=== PATIENT | female | born 1990 | race Caucasian/White ===

== ENCOUNTER 2021-10-20 09:07 | Emergency (ER) | payer OTHER | END 2021-10-20 12:10 | disposition home or self-care (01) | LOC: EC 09:07 | DX: T78.40XA Allergy, unspecified, initial encounter (principal) | CPT/HCPCS: 99282 ==

== ENCOUNTER 2021-12-09 15:20 | Inpatient (IN) | payer OTHER ==
[2021-12-09 17:19] LABS: Basophils % (A) 0 %; Eosinophils % (A) 0 %; HCT 41.1 % (34.0-46.0); HGB 13.4 gm/dL (11.4-16.0); Lymphocytes # (A) 0.9 k/uL (1.0-4.8); Lymphocytes % (A) 9 %; MCH 28.9 pg (25.0-35.0); MCHC 32.7 g/dL (31.0-37.0); MCV 88.6 fL (80.0-100.0); Mean Platelet Volume 7.1; Monocytes # (A) 0.2 k/uL (0-1.0); Monocytes % (A) 2 %; Neutrophils # (A) 8.9 k/uL (1.3-7.7); Neutrophils % (A) 88 %; Platelet Count 381 k/uL (150-450); RBC 4.63 m/uL (3.80-5.40); RDW 12.2 % (11.5-15.5); WBC 10.1 k/uL (3.8-10.6)
[2021-12-09 17:30] LABS: Appearance,Urine Cloudy (Clear); Bacteria,Urine Occasional /hpf; Bilirubin,Urine Negative (Negative); Blood,Urine Large (Negative); Color,Urine Yellow; Glucose,Urine (UA) Negative (Negative); Ketones,Urine Negative (Negative); Leukocyte Esterase,Urine Large (Negative); Mucus,Urine Few /hpf; Nitrite,Urine Negative (Negative); PH, Urine 8.5 (5.0-8.0); Protein,Urine 1+ (Negative); RBC,Urine 131 /hpf (0-5); Squamous Epithelial Cell,Urine 15 /hpf (0-4); WBC,Urine 33 /hpf (0-5)
[2021-12-09 17:30] LABS: ALT 28 U/L (4-34); AST 28 U/L (14-36); African American GFR (CKD) >90 (>60 ml/min/1.73 sqM); Albumin 4.8 g/dL (3.5-5.0); Alkaline Phosphatase 51 U/L (38-126); Amylase 63 U/L (30-110); Anion Gap 10 mmol/L; Blood Urea Nitrogen 10 mg/dL (7-17); Calcium 9.3 mg/dL (8.4-10.2); Carbon Dioxide 21 mmol/L (22-30); Chloride 107 mmol/L (98-107); Glucose 127 mg/dL (74-99); Lipase 212 U/L (23-300); Non-African American GFR(CKD) >90 (>60 ml/min/1.73 sqM); Potassium 4.4 mmol/L (3.5-5.1); Sodium 138 mmol/L (137-145); Total Bilirubin 0.5 mg/dL (0.2-1.3); Total Protein 7.8 g/dL (6.3-8.2)
--- NOTE | 2021-12-09 18:19 | XR ---
EXAMINATION TYPE: XR KUB DATE OF EXAM: 12/09/2021 6:05 PM INDICATION: Patient age:Female; 31 years old; Reason for study: abdominal pain; COMPARISON: None. TECHNIQUE: One radiographic view of the abdomen was obtained. FINDINGS: The bowel gas pattern is nonspecific without dilated loops of small or large bowel. There i s no evidence for organomegaly or pneumoperitoneum. The osseous structures are intact. Fecal materi al and gas are demonstrated throughout the colon and rectum. IUD projects over the sacrum. IMPRESSION: 1. Nonspecific bowel gas pattern without radiographic evidence for acute process. 2. IUD projecting over the sacrum.
--- NOTE | 2021-12-09 20:53 | ED ---
Abdominal Pain HPI - General Chief Complaint: Abdominal Pain Stated Complaint: Abd pain Time Seen by Provider: 12/09/21 16:10 Source: patient Mode of arrival: ambulatory Limitations: no limitations - History of Present Illness Initial Comments: 31-year-old female with past medical history of asthma presents to the emergency department for shortness of breath and lower extremity swelling. Patient reports that she has been on steroids for several months due to a chronic cough. The steroids have been prescribed by an director software development that she is seeing. 2 days ago she was placed on 50 mg predinsone daily to be tapered over several weeks. Since the increase in the steroids she has had worsening lower extremity swelling, continued shortness of breath and abdominal distention. She denies any changes in her bowel or bladder habits. No chest pain. No history of DVT or PE. No fevers. Reports that they're trying to get her cough under control so that they can biopsy her thyroid. Patient was found to have a large thyroid nodule. No concern for . No alcohol use. No other alleviating, precipitating or modifying factors - Related Data Home Medications Medication Instructions Recorded Confirmed Albuterol Nebulized [Ventolin 2.5 mg INHALATION RT-Q6H PRN 12/09/21 12/09/21 Nebulized] Albuterol Sulfate [Ventolin HFA] 2 puff INHALATION RT-Q6H PRN 12/09/21 12/09/21 Azelastine HCl [Astepro] 1 spray NASAL DAILY 12/09/21 12/09/21 Cetirizine HCl 10 mg PO DAILY 12/09/21 12/09/21 Codeine Phosphate/Guaifenesin 10 ml PO Q4H PRN 12/09/21 12/09/21 [Codeine Phosphate/Guaifenesin 10-100 mg/5 ml] Fluticasone Nasal [place] [Flonase 1 spray EA NOSTRIL DAILY 12/09/21 12/09/21 Nasal Blanco] Fluticasone/Umeclidin/Vilanter 1 puff INHALATION RT-DAILY 12/09/21 12/09/21 [Trelegy Ellipta 100-62.5-25] Hydroxychloroquine Sulfate 200 mg PO BID 12/09/21 12/09/21 [Plaquenil] Montelukast [Singulair] 10 mg PO DAILY 12/09/21 12/09/21 predniSONE See Taper PO DIRECTED 12/09/21 12/09/21 Allergies Allergy/AdvReac Type Severity Reaction Status Date / Time No Known Allergies Allergy Verified 12/09/21 16:12 Review of Systems ROS Statement: Those systems with pertinent positive or pertinent negative responses have been documented in the HPI. ROS Other: All systems not noted in ROS Statement are negative. Past Medical History Additional Past Medical History / Comment(s): mass on thyroid History of Any Multi-Drug Resistant Organisms: None Reported Past Surgical History: No Surgical Hx Reported Past Psychological History: No Psychological Hx Reported Smoking Status: Never smoker Past Alcohol Use History: Rare Past Drug Use History: None Reported General Exam Limitations: no limitations General appearance: alert, in no apparent distress Head exam: Present: atraumatic, normocephalic, normal inspection Eye exam: Present: normal appearance, PERRL, EOMI. Absent: scleral icterus, conjunctival injection, periorbital swelling ENT exam: Present: normal exam, mucous membranes moist Neck exam: Present: normal inspection. Absent: tenderness, meningismus, lymphadenopathy Respiratory exam: Present: normal lung sounds bilaterally. Absent: respiratory distress, wheezes, rales, rhonchi, stridor Cardiovascular Exam: Present: regular rate, normal rhythm, normal heart sounds. Absent: systolic murmur, diastolic murmur, rubs, gallop, clicks GI/Abdominal exam: Present: soft, distended, normal bowel sounds. Absent: tenderness, guarding, rebound, rigid Extremities exam: Present: full ROM, normal capillary refill, pedal edema. Absent: tenderness, joint swelling, calf tenderness Back exam: Present: normal inspection Neurological exam: Present: alert, oriented X3, CN II-XII intact Psychiatric exam: Present: normal affect, normal mood Skin exam: Present: warm, dry, intact, normal color. Absent: rash Course Vital Signs 12/09/21 12/09/21 12/09/21 16:08 20:00 21:00 Temperature 98.2 F 98.7 F Pulse Rate 95 92 Respiratory 16 18 20 Rate Blood Pressure 125/82 118/86 O2 Sat by Pulse 98 97 Oximetry Medical Decision Making - Medical Decision Making Upon arrival the patient was placed into room 6. A thorough history and physical exam was performed. IV access is established and laboratory studies are conducted. KUB was originally obtained which demonstrates nonspecific bowel gas pattern. This is followed up with a CT of the chest to the patient's persistent shortness of breath with leg swelling which demonstrates no signs of PE. CT of the abdomen and pelvis was obtained because of the abdominal distention with no acute process. Did call and speak with Dr. Metcalf in regards to resolve. Patient will be admitted for echo. She is awaiting a bed on the floor in stable condition - Lab Data Result diagrams: 12/10/21 06:13 12/10/21 06:13 Lab Results 12/09/21 12/09/21 12/09/21 Range/Units 17:08 17:08 17:10 WBC 10.1 (3.8-10.6) k/uL RBC 4.63 (3.80-5.40) m/uL Hgb 13.4 (11.4-16.0) gm/dL Hct 41.1 (34.0-46.0) % MCV 88.6 (80.0-100.0) fL MCH 28.9 (25.0-35.0) pg MCHC 32.7 (31.0-37.0) g/dL RDW 12.2 (11.5-15.5) % Plt Count 381 (150-450) k/uL MPV 7.1 Neutrophils % 88 % Lymphocytes % 9 % Monocytes % 2 % Eosinophils % 0 % Basophils % 0 % Neutrophils # 8.9 H (1.3-7.7) k/uL Lymphocytes # 0.9 L (1.0-4.8) k/uL Monocytes # 0.2 (0-1.0) k/uL Eosinophils # 0.0 (0-0.7) k/uL Basophils # 0.0 (0-0.2) k/uL PT (9.0-12.0) sec INR (<1.2) APTT (22.0-30.0) sec Sodium (137-145) mmol/L Potassium (3.5-5.1) mmol/L Chloride (98-107) mmol/L Carbon Dioxide (22-30) mmol/L Anion Gap mmol/L BUN (7-17) mg/dL Creatinine (0.52-1.04) mg/dL Est GFR (CKD-EPI)AfAm (>60 ml/min/1.73 sqM) Est GFR (CKD-EPI)NonAf (>60 ml/min/1.73 sqM) Glucose (74-99) mg/dL Calcium (8.4-10.2) mg/dL Total Bilirubin (0.2-1.3) mg/dL AST (14-36) U/L ALT (4-34) U/L Alkaline Phosphatase (38-126) U/L Troponin I (0.000-0.034) ng/mL NT-Pro-B Natriuret Pep pg/mL Total Protein (6.3-8.2) g/dL Albumin (3.5-5.0) g/dL Amylase (30-110) U/L Lipase (23-300) U/L Urine Color Yellow Urine Appearance Cloudy H (Clear) Urine pH 8.5 H (5.0-8.0) Ur Specific [place] 1.020 (1.001-1.035) Urine Protein 1+ H (Negative) Urine Glucose (UA) Negative (Negative) Urine Ketones Negative (Negative) Urine Blood Large H (Negative) Urine Nitrite Negative (Negative) Urine Bilirubin Negative (Negative) Urine Urobilinogen 2.0 (<2.0) mg/dL Ur Leukocyte Esterase Large H (Negative) Urine RBC 131 H (0-5) /hpf Urine WBC 33 H (0-5) /hpf Ur Squamous Epith Cells 15 H (0-4) /hpf Urine Bacteria Occasional H (None) /hpf Urine Mucus Few H (None) /hpf Urine HCG, Qual Not Detected (Not Detectd) 12/09/21 12/09/21 12/09/21 Range/Units 17:10 21:07 21:07 WBC (3.8-10.6) k/uL RBC (3.80-5.40) m/uL Hgb (11.4-16.0) gm/dL Hct (34.0-46.0) % MCV (80.0-100.0) fL MCH (25.0-35.0) pg MCHC (31.0-37.0) g/dL RDW (11.5-15.5) % Plt Count (150-450) k/uL MPV Neutrophils % % Lymphocytes % % Monocytes % % Eosinophils % % Basophils % % Neutrophils # (1.3-7.7) k/uL Lymphocytes # (1.0-4.8) k/uL Monocytes # (0-1.0) k/uL Eosinophils # (0-0.7) k/uL Basophils # (0-0.2) k/uL PT 11.0 (9.0-12.0) sec INR 1.0 (<1.2) APTT 25.9 (22.0-30.0) sec Sodium 138 (137-145) mmol/L Potassium 4.4 (3.5-5.1) mmol/L Chloride 107 (98-107) mmol/L Carbon Dioxide 21 L (22-30) mmol/L Anion Gap 10 mmol/L BUN 10 (7-17) mg/dL Creatinine 0.73 (0.52-1.04) mg/dL Est GFR (CKD-EPI)AfAm >90 (>60 ml/min/1.73 sqM) Est GFR (CKD-EPI)NonAf >90 (>60 ml/min/1.73 sqM) Glucose 127 H (74-99) mg/dL Calcium 9.3 (8.4-10.2) mg/dL Total Bilirubin 0.5 (0.2-1.3) mg/dL AST 28 (14-36) U/L ALT 28 (4-34) U/L Alkaline Phosphatase 51 (38-126) U/L Troponin I <0.012 (0.000-0.034) ng/mL NT-Pro-B Natriuret Pep pg/mL Total Protein 7.8 (6.3-8.2) g/dL Albumin 4.8 (3.5-5.0) g/dL Amylase 63 (30-110) U/L Lipase 212 (23-300) U/L Urine Color Urine Appearance (Clear) Urine pH (5.0-8.0) Ur Specific [place] (1.001-1.035) Urine Protein (Negative) Urine Glucose (UA) (Negative) Urine Ketones (Negative) Urine Blood (Negative) Urine Nitrite (Negative) Urine Bilirubin (Negative) Urine Urobilinogen (<2.0) mg/dL Ur Leukocyte Esterase (Negative) Urine RBC (0-5) /hpf Urine WBC (0-5) /hpf Ur Squamous Epith Cells (0-4) /hpf Urine Bacteria (None) /hpf Urine Mucus (None) /hpf Urine HCG, Qual (Not Detectd) 12/09/21 Range/Units 21:07 WBC (3.8-10.6) k/uL RBC (3.80-5.40) m/uL Hgb (11.4-16.0) gm/dL Hct (34.0-46.0) % MCV (80.0-100.0) fL MCH (25.0-35.0) pg MCHC (31.0-37.0) g/dL RDW (11.5-15.5) % Plt Count (150-450) k/uL MPV Neutrophils % % Lymphocytes % % Monocytes % % Eosinophils % % Basophils % % Neutrophils # (1.3-7.7) k/uL Lymphocytes # (1.0-4.8) k/uL Monocytes # (0-1.0) k/uL Eosinophils # (0-0.7) k/uL Basophils # (0-0.2) k/uL PT (9.0-12.0) sec INR (<1.2) APTT (22.0-30.0) sec Sodium (137-145) mmol/L Potassium (3.5-5.1) mmol/L Chloride (98-107) mmol/L Carbon Dioxide (22-30) mmol/L Anion Gap mmol/L BUN (7-17) mg/dL Creatinine (0.52-1.04) mg/dL Est GFR (CKD-EPI)AfAm (>60 ml/min/1.73 sqM) Est GFR (CKD-EPI)NonAf (>60 ml/min/1.73 sqM) Glucose (74-99) mg/dL Calcium (8.4-10.2) mg/dL Total Bilirubin (0.2-1.3) mg/dL AST (14-36) U/L ALT (4-34) U/L Alkaline Phosphatase (38-126) U/L Troponin I (0.000-0.034) ng/mL NT-Pro-B Natriuret Pep 85 pg/mL Total Protein (6.3-8.2) g/dL Albumin (3.5-5.0) g/dL Amylase (30-110) U/L Lipase (23-300) U/L Urine Color Urine Appearance (Clear) Urine pH (5.0-8.0) Ur Specific [place] (1.001-1.035) Urine Protein (Negative) Urine Glucose (UA) (Negative) Urine Ketones (Negative) Urine Blood (Negative) Urine Nitrite (Negative) Urine Bilirubin (Negative) Urine Urobilinogen (<2.0) mg/dL Ur Leukocyte Esterase (Negative) Urine RBC (0-5) /hpf Urine WBC (0-5) /hpf Ur Squamous Epith Cells (0-4) /hpf Urine Bacteria (None) /hpf Urine Mucus (None) /hpf Urine HCG, Qual (Not Detectd) Disposition Clinical Impression: Peripheral edema, Abdominal pain, Chronic cough Disposition: ADMITTED IP TO THIS [facility] Condition: Stable Is patient prescribed a controlled substance at d/c from ED?: No Time of Disposition: 22:53 Decision to Admit Reason: Admit from EC Decision Date: 12/09/21 Decision Time: 22:53
[2021-12-09] MEDS ORDERED: MORPHINE SULFATE 4 MG/ML SYRINGE IVP STA (21:16)
[2021-12-09 21:35] LABS: Partial Thromboplastin Time 25.9 sec (22.0-30.0)
--- NOTE | 2021-12-09 21:52 | CT ---
EXAMINATION TYPE: CT chest angio for PE CT DLP: 1270.9 mGycm, Automated exposure control for dose reduction was used. DATE OF EXAM: 12/09/2021 9:34 PM COMPARISON: Abdominal radiograph from same day. CLINICAL INDICATION:Female, 31 years old with history of chest pain, short of breath; SOB, leg swelli ng TECHNIQUE/CONTRAST: CTA scan of the thorax is performed with IV Contrast, patient injected with 100 mL of Isovue 370, pul monary embolism protocol. MIP images are created and reviewed. FINDINGS: Pulmonary Artery: There is no evidence for a filling defect within the pulmonary vasculature to sugge st acute pulmonary embolism. The pulmonary artery is of normal size. Lungs/Pleura: No evidence of focal consolidation, pleural effusion or pneumothorax. Streaky atelectas is seen within the lung bases. Airway: Large airways are patent. Heart: Heart is within normal limits for size.. Vasculature: No evidence of aortic aneurysm. Mediastinum: No gross evidence of adenopathy. Musculoskeletal: No acute osseous abnormalities Soft Tissues: Unremarkable. Lower neck: No significant findings. IMPRESSION: No evidence of pulmonary embolism.
--- NOTE | 2021-12-09 21:52 | CT ---
EXAMINATION TYPE: CT abdomen pelvis w con CT DLP: 1270.9 mGycm, Automated exposure control for dose reduction was used. DATE OF EXAM: 12/09/2021 9:34 PM COMPARISON: None. CLINICAL INDICATION:Female, 31 years old with history of chest pain, short of breath; SOB, leg swelli ng TECHNIQUE: Standard CT of the abdomen and pelvis following the administration of 100 cc of Isovue 3 00 IV contrast material. Coronal and sagittal reformats were performed. FINDINGS: LIVER: Diffusely hypoattenuating parenchyma. GALLBLADDER AND BILE DUCTS: Unremarkable. PANCREAS: Unremarkable. SPLEEN: Unremarkable. ADRENAL GLANDS: Unremarkable. KIDNEYS AND URETERS: No evidence of hydronephrosis or renal calculus. The ureters are unremarkable. PELVIS BLADDER: Unremarkable REPRODUCTIVE: Intrauterine device seen within the endometrium. ABDOMEN & PELVIS STOMACH AND BOWEL: No evidence of bowel obstruction. Appendix is normal. PERITONEUM: No evidence of pneumoperitoneum or free fluid. VASCULATURE: No evidence of aortic aneurysm. MUSCULOSKELETAL: No acute osseous abnormalities. LYMPH NODES: No gross evidence for lymphadenopathy. SOFT TISSUE/ABDOMINAL WALL: No finding to correlate with extremity swelling. IMPRESSION: 1. No evidence for acute abdominal process. 2. IUD in appropriate position. 3. Hepatic steatosis.
[2021-12-09] MEDS ORDERED: NALOXONE 0.4 MG/ML 1 ML VIAL IV PRN (22:54)
[2021-12-09] MEDS ORDERED: IPRATROPIUM-ALBUTEROL 3 ML NEB INHALATION STA (23:01)
[2021-12-09] MEDS ORDERED: guaiFENesin-Coden 100-10MG/5ML 10 ML CUP PO PRN (23:01)
[2021-12-09] MEDS: IPRATROPIUM-ALBUTEROL 3 ML NEB INHALATION SCH (23:38)
[2021-12-09] MEDS: HYDROXYCHLOROQUINE SULFATE 200 MG TAB PO SCH (23:50)
[2021-12-10] MEDS: IPRATROPIUM-ALBUTEROL 3 ML NEB INHALATION SCH ×5 (03:36→19:54)
[2021-12-10 07:08] LABS: Basophils # (A) 0.1 k/uL (0-0.2); Basophils % (A) 1 %; Eosinophils # (A) 0.1 k/uL (0-0.7); Eosinophils % (A) 1 %; HCT 39.9 % (34.0-46.0); HGB 12.8 gm/dL (11.4-16.0); Lymphocytes # (A) 3.3 k/uL (1.0-4.8); Lymphocytes % (A) 26 %; MCH 28.8 pg (25.0-35.0); MCHC 32.1 g/dL (31.0-37.0); MCV 89.6 fL (80.0-100.0); Mean Platelet Volume 7.6; Monocytes # (A) 0.8 k/uL (0-1.0); Monocytes % (A) 6 %; Neutrophils # (A) 8.2 k/uL (1.3-7.7); Neutrophils % (A) 64 %; Platelet Count 296 k/uL (150-450); RBC 4.45 m/uL (3.80-5.40); RDW 12.3 % (11.5-15.5); WBC 12.7 k/uL (3.8-10.6)
[2021-12-10 07:14] LABS: African American GFR (CKD) >90 (>60 ml/min/1.73 sqM); Anion Gap 9 mmol/L; Blood Urea Nitrogen 13 mg/dL (7-17); Carbon Dioxide 25 mmol/L (22-30); Chloride 106 mmol/L (98-107); Glucose 76 mg/dL (74-99); Non-African American GFR(CKD) >90 (>60 ml/min/1.73 sqM); Potassium 4.3 mmol/L (3.5-5.1); Sodium 140 mmol/L (137-145)
[2021-12-10] MEDS ORDERED: SYMBICORT 80-4.5 MCG INHALER INHALATION SCH (08:00)
[2021-12-10] MEDS: HYDROXYCHLOROQUINE SULFATE 200 MG TAB PO SCH ×2 (08:01→21:16)
[2021-12-10] MEDS: FLUTICASONE 50MCG/SPRAY NASAL 16GM EA NOSTRIL SCH (08:01)
[2021-12-10] MEDS: LORATADINE 10 MG TAB PO SCH (08:01)
[2021-12-10] MEDS: AZELASTINE 137MCG/SPRAY NASAL SCH (08:01)
[2021-12-10] MEDS: MONTELUKAST 10 MG TAB PO SCH (08:01)
--- NOTE | 2021-12-10 11:30 | CA ---
Transthoracic Echo Report Name: Peggy Tucker Age: 31 Gender: F : 1990 Exam Date: 12/10/2021 08:02 Exam Location: [place] Echo Ht (in): 62 Wt (lb): 160 Ordering Physician: Adela Diana DO Attending/Referring Phys: [id number], Lebron Account Maintenance Representative Janki Jones, [place] Procedure CPT: Indications: sob Cardiac Hx: No cardiac hx Technical Quality: Good Contrast 1: Total Dose (mL): Contrast 2: Total Dose (mL): MEASUREMENTS (Male / Female) Normal Values 2D ECHO LV Diastolic Diameter PLAX 4.2 cm 4.2 - 5.9 / 3.9 - 5.3 cm LV Systolic Diameter PLAX 2.3 cm IVS Diastolic Thickness 0.9 cm 0.6 - 1.0 / 0.6 - 0.9 cm LVPW Diastolic Thickness 0.9 cm 0.6 - 1.0 / 0.6 - 0.9 cm LV Relative Wall Thickness 0.4 RV Internal Dim ED PLAX 1.9 cm LA Volume 27.7 cm??? 18 - 58 / 22 - 52 cm??? M-MODE Aortic Root Diameter MM 2.4 cm LA Systolic Diameter MM 1.9 cm LA Ao Ratio MM 0.8 MV E Point Septal Separation 0.9 cm AV Cusp Separation MM 1.4 cm DOPPLER AV Peak Velocity 150.6 cm/s AV Peak Gradient 9.1 mmHg MV Area PHT 3.9 cm??? MR Peak Velocity 159.9 cm/s MR Peak Gradient 10.2 mmHg Mitral E Point Velocity 82.8 cm/s Mitral A Point Velocity 60.8 cm/s Mitral E to A Ratio 1.4 MV Deceleration Time 193.6 ms MV E' Velocity 10.1 cm/s Mitral E to MV E' Ratio 8.2 TR Peak Velocity 122.9 cm/s TR Peak Gradient 6.0 mmHg Right Ventricular Systolic Press 10.4 mmHg FINDINGS Left Ventricle Normal Left ventricular size, wall thickness, systolic function with no obvious regional wall motion abnormalities. Normal Left ventricular diastolic filling pattern. Left ventricular ejection fraction is estimated at 55-60 %. Right Ventricle The right ventricle is normal in size and function. Right Atrium The right atrium is normal in size. Left Atrium The left atrium is normal in size. Mitral Valve Structurally normal mitral valve without significant stenosis. There is mild mitral regurgitation. Myxomatous mitral valve Aortic Valve Structurally normal aortic valve without significant sclerosis or stenosis. There is no aortic regurgitation. Tricuspid Valve Structurally normal tricuspid valve without significant stenosis. Pulmonary artery systolic pressure is normal. Trace tricuspid regurgitation. Pulmonic Valve Structurally normal pulmonic valve without significant stenosis. There is no pulmonic regurgitation. Pericardium Normal pericardium without effusion. Aorta Normal aortic root dimension. CONCLUSIONS Normal LV size and systolic function. Mild mitral and tricuspid insufficiency. No significant pulmonary hypertension. No pericardial effusion Previewed by: Dr. Mercy Foote MD (Electronically Signed) Final Date: 10 December 2021 11:30
--- NOTE | 2021-12-10 11:36 | P.CNPUL ---
History of Present Illness Consult date: 12/10/21 Requesting physician: Adela Diana Reason for consult: dyspnea, cough Chief complaint: Shortness of breath, lower extremity swelling, chronic cough History of present illness: This is a 31-year-old white female patient who follows with AMADOU Carey for primary care services. Patient presents to the hospital on 12/09/2021 was complaints of shortness of breath, and her lower extremity swelling. Patient states she had been on steroids for several months due to a chronic cough, she sees an enrollment manager on an outpatient basis, she is not sure of the name. She had been on 50 mg of prednisone daily to be tapered over several weeks, in addition she is on Trelegy Ellipta 100-62.5-25 inhaler daily, Singulair, Flonase, cetirizine, and a nebulized and HFA albuterol. She is a never smoker. She is also on Plaquenil for possible Sjogren's disease and she had seen a motor express clerk and was recently placed on Plaquenil. Since the increase in steroids she had worsening lower extremity swelling, continue shortness of breath, and abdominal distention. No fever or chills, no chest pain, no history of DVT or PE, reports that her PCP an enrollment manager still trying to get her cough under control so she can have a biopsy of a large thyroid nodule. No alcohol use. No abdominal pain, no nausea vomiting or diarrhea. KUB abdomen showed nonspecific bowel gas pattern without radiographic evidence for acute process, and there was a IUD projecting over the sacrum. CT angiogram of chest was completed showing no evidence of pulmonary embolism, no evidence of focal consolidation, pleural effusion or pneumothorax, there was streaky atelectasis seen within the lung bases. CT of the abdomen and pelvis showed no evidence of acute abdominal process, and IUD was in appropriate position. There was hepatic steatosis. Vital signs have been stable, patient has been afebrile, room air pulse ox is 99%, breathing is nonlabored, lab evaluation revealed normal white count of 10.1, hemoglobin is 13.1, coagulation profile was within normal limits, electrolytes and renal profile were unremarkable, LFTs were within normal limits, troponin was negative 1 at less than 0.012, proBNP was 85, amylase and lipase were within normal limits at 63 and 212 respectively. Urinalysis showed 1+ protein, large amount of blood, large amount of leukocyte esterase, 33 of white blood cells, consistent with possibility of acute urinary tract infection. Urine culture was sent. Patient's lungs are clear, patient does not appear to be in any acute distress, very mild minimal swelling in bilateral lower extremities, patient continues on nebulized bronchodilators, Symbicort, Singulair, Claritin and cough syrup Review of Systems All systems: negative Constitutional: Denies chills, Denies fever Eyes: denies blurred vision, denies pain Ears, nose, mouth and throat: Denies headache, Denies sore throat Cardiovascular: Denies chest pain, Denies shortness of breath Respiratory: Reports cough, Reports dyspnea Gastrointestinal: Denies abdominal pain, Denies diarrhea, Denies nausea, Denies vomiting Genitourinary: Denies dysuria, Denies hematuria Musculoskeletal: Denies myalgias Integumentary: Denies pruritus, Denies rash Neurological: Denies numbness, Denies weakness Psychiatric: Denies anxiety, Denies depression Endocrine: Denies fatigue, Denies weight change Past Medical History Additional Past Medical History / Comment(s): mass on thyroid History of Any Multi-Drug Resistant Organisms: None Reported Past Surgical History: No Surgical Hx Reported Past Psychological History: No Psychological Hx Reported Smoking Status: Never smoker Past Alcohol Use History: Rare Past Drug Use History: None Reported Medications and Allergies Home Medications Medication Instructions Recorded Confirmed Type Albuterol Nebulized [Ventolin 2.5 mg INHALATION RT-Q6H PRN 12/09/21 12/09/21 History Nebulized] Albuterol Sulfate [Ventolin HFA] 2 puff INHALATION RT-Q6H PRN 12/09/21 12/09/21 History Azelastine HCl [Astepro] 1 spray NASAL DAILY 12/09/21 12/09/21 History Cetirizine HCl 10 mg PO DAILY 12/09/21 12/09/21 History Codeine Phosphate/Guaifenesin 10 ml PO Q4H PRN 12/09/21 12/09/21 History [Codeine Phosphate/Guaifenesin 10-100 mg/5 ml] Fluticasone Nasal [place] [Flonase 1 spray EA NOSTRIL DAILY 12/09/21 12/09/21 History Nasal [place]] Fluticasone/Umeclidin/Vilanter 1 puff INHALATION RT-DAILY 12/09/21 12/09/21 History [Trelegy Ellipta 100-62.5-25] Hydroxychloroquine Sulfate 200 mg PO BID 12/09/21 12/09/21 History [Plaquenil] Montelukast [Singulair] 10 mg PO DAILY 12/09/21 12/09/21 History predniSONE See Taper PO DIRECTED 12/09/21 12/09/21 History Allergies Allergy/AdvReac Type Severity Reaction Status Date / Time No Known Allergies Allergy Verified 12/09/21 16:12 Physical Exam Vitals: Vital Signs Temp Pulse Pulse Resp BP BP Pulse Ox 12/10/21 08:00 74 18 12/10/21 07:16 88 12/10/21 07:04 84 12/10/21 07:00 98.1 F 74 18 98/67 99 12/10/21 01:39 97.9 F 87 18 108/59 100 12/09/21 23:51 97.5 F L 81 19 123/76 97 12/09/21 23:50 96 12/09/21 23:45 90 12/09/21 22:29 98.6 F 88 20 120/87 99 12/09/21 21:00 20 12/09/21 20:00 98.7 F 92 18 118/86 97 12/09/21 16:08 98.2 F 95 16 125/82 98 Intake and Output 12/09/21 12/10/21 12/10/21 22:59 06:59 14:59 Intake Total 118 Balance 118 Intake: Oral 118 Other: # Voids 1 Weight 72.575 kg 72.575 kg GENERAL EXAM: Alert, very pleasant, 31-year-old white female, on room air, pulse ox of 99% comfortable in no apparent distress. HEAD: Normocephalic/atraumatic. EYES: Normal reaction of pupils, equal size. Conjunctiva pink, sclera white. NOSE: Clear with pink turbinates. THROAT: No erythema or exudates. NECK: No masses, no JVD, no thyroid enlargement, no adenopathy. CHEST: No chest wall deformity. Symmetrical expansion. LUNGS: Equal air entry with no crackles, wheeze, rhonchi or dullness. CVS: Regular rate and rhythm, normal S1 and S2, no gallops, no murmurs, no rubs ABDOMEN: Soft, nontender. No hepatosplenomegaly, normal bowel sounds, no guarding or rigidity. EXTREMITIES: No clubbing, minimal nonpitting lower extremity swelling, no cyanosis, 2+ pulses and upper and lower extremities. MUSCULOSKELETAL: Muscle strength and tone normal. SPINE: No scoliosis or deformity SKIN: No rashes CENTRAL NERVOUS SYSTEM: Alert and oriented -3. No focal deficits, tone is normal in all 4 extremities. PSYCHIATRIC: Alert and oriented -3. Appropriate affect. Intact judgment and insight. Results - Laboratory Findings CBC and BMP: 12/10/21 06:13 12/10/21 06:13 PT/INR, D-dimer PT 11.0 sec (9.0-12.0) 12/09/21 21:07 INR 1.0 (<1.2) 12/09/21 21:07 Abnormal lab findings: Abnormal Labs 12/09/21 12/09/21 12/09/21 17:08 17:10 17:10 WBC Neutrophils # 8.9 H Lymphocytes # 0.9 L Carbon Dioxide 21 L Glucose 127 H Urine Appearance Cloudy H Urine pH 8.5 H Urine Protein 1+ H Urine Blood Large H Ur Leukocyte Esterase Large H Urine RBC 131 H Urine WBC 33 H Ur Squamous Epith Cells 15 H Urine Bacteria Occasional H Urine Mucus Few H 12/10/21 06:13 WBC 12.7 H Neutrophils # 8.2 H Lymphocytes # Carbon Dioxide Glucose Urine Appearance Urine pH Urine Protein Urine Blood Ur Leukocyte Esterase Urine RBC Urine WBC Ur Squamous Epith Cells Urine Bacteria Urine Mucus - Diagnostic Findings CT scan - chest: report reviewed, image reviewed Additional studies: CT of the abdomen and pelvis and KUB reviewed Assessment and Plan Plan: Assessment: #1. Chronic cough and dyspnea, possibly related to acute exacerbation of chronic bronchial asthma, unspecified. CTA chest showed no evidence of pulmonary embolism, no focal consolidation, no pleural effusion or pneumothorax. There was streaky atelectasis within the lung bases #2. Lower extremity swelling, minimal, abdominal distention, possibly related to prolonged use of systemic steroids #3. History of Sjogren's, on Plaquenil #4. Never smoker #5. Large thyroid nodule, awaiting biopsy #6. Acute urinary tract infection, urine cultures pending Plan: From pulmonary perspective patient has been stable No rhonchi or wheezing, no cough, no need for systemic steroids Continue Trelegy inhaler, although would recommend increasing it to 200/62.5/25 dose for chronic bronchial asthma control Patient does not have any significant swelling involving bilateral lower extremities, this likely related to prolonged course of prednisone No evidence of PE, no pneumonia, mild bibasilar atelectasis on CT chest Increase activity as tolerated Patient is clear for discharge from pulmonary perspective Patient states she has an appointment with a debt collection specialist, she is not sure of the name, which is upcoming soon Patient can keep that appointment I have personally seen and examined the patient, performed the documentation and the assessment and plan as written. Number of minutes spent on the visit: [15] Time with Patient: Greater than 30
[2021-12-10] MEDS: SULFAMETHOX-TMP 800-160MG 1 EACH TAB PO SCH ×2 (16:36→23:40)
--- NOTE | 2021-12-10 19:13 | HP ---
HISTORY AND PHYSICAL CHIEF COMPLAINT: Shortness of breath, lower extremity edema and lower abdominal pain. HISTORY OF PRESENT ILLNESS: This is the first known admission for this 31-year-old white female who has been having trouble since June. She did have COVID in the past. In June, she started to have trouble with shortness of breath, frequent and persistent dry cough, lower extremity edema as well as lower abdominal pain. She has undergone extensive workup and it was thought that she might have collagen vascular disease. She was referred to Rheumatology, who apparently could not confirm a diagnosis of disease or any other collagen disease. However, she was placed on a fairly high dose prednisone. She also saw an schedule clerk who raised the dose of the prednisone. She continues to have a lot of shortness of breath with a dry hacky cough. She also has been identified as having a thyroid nodule which has to be biopsied with the FNA, but this cannot be done until her cough stops. She has had no fever, chills, hemoptysis, sputum production, chest pain, etc. She recently has had some lower abdominal discomfort without any change in bowel habits, urinary habits, etc. CT of the abdomen and pelvis was normal. She also had a CTA of the chest which was normal. REVIEW OF SYSTEMS: She has had no other complaints or problems. Past medical history, family history personal and social histories are otherwise unremarkable or noncontributory. She does have urinary tract infection according to her urine on admission. PHYSICAL EXAMINATION: Blood pressure is 111/74 with a pulse of 81, respirations of 30 and she is afebrile. In general she appeared to be well developed, well nourished, in no acute distress. Skin color is normal skin is warm and dry. She did have some flushing of the cheeks. Head, ears, eyes, nose, mouth and throat were otherwise normal. There is no neck vein distention. The carotids are normal. Chest was clear. There was no wheezing and there were no rhonchi. Cardiac exam demonstrated normal sinus rhythm and no murmurs or extra sounds the. Abdomen is soft and nontender. She had a little bit of discomfort in the lower abdomen. There are no masses. Extremities are normal and there is minimal edema. Neurologically she is intact. IMPRESSION: She is admitted to the hospital with diagnoses: 1. Chronic and persistent shortness of breath with dry cough. 2. Lower abdominal pain. 3. Thyroid nodule. 4. Urinary tract infection. PLAN: 1. Bedrest. 2. IV fluids. 3. Echocardiogram. 4. Consult with Pulmonology and Cardiology as well as obtaining several other studies that might rule in or rule out pathology that could be giving her symptoms. MMODL / IJN: [id number] /
--- NOTE | 2021-12-10 19:17 | PN ---
PROGRESS NOTE DATE OF SERVICE: 12/10/2021 CHIEF COMPLAINT: Shortness of breath with dry cough. HISTORY OF PRESENT ILLNESS: This lady is feeling just about the same. She has been seen by Pulmonology who has nothing further to offer. PHYSICAL EXAMINATION: Chest is clear. Cardiac exam is normal. Abdomen is soft, nontender. IMPRESSION: 1. Persistent dry cough with shortness of breath. 2. Lower abdominal pain. 3. Lower extremity swelling. 4. Thyroid nodule. PLAN: Await further studies and then make a decision as to whether or not she can be discharged and what other studies might be necessary. MMODL / IJN: [id number] /
[2021-12-10] MEDS: SYMBICORT 160-4.5 MCG INHALER INHALATION SCH (19:53)
[2021-12-10 23:15] LABS: C Reactive Protein <0.30 mg/dL (0.00-0.80)
[2021-12-11] MEDS: IPRATROPIUM-ALBUTEROL 3 ML NEB INHALATION SCH ×7 (00:45→23:34)
[2021-12-11 01:41] LABS: Anti-DNA, DS unit <1.0 IU/mL; DNA Double-Stranded NEGATIVE (NEGATIVE)
[2021-12-11] MEDS: SYMBICORT 160-4.5 MCG INHALER INHALATION SCH ×2 (07:43→19:25)
[2021-12-11] MEDS: FLUTICASONE 50MCG/SPRAY NASAL 16GM EA NOSTRIL SCH (07:50)
[2021-12-11] MEDS: AZELASTINE 137MCG/SPRAY NASAL SCH (07:50)
[2021-12-11] MEDS: SULFAMETHOX-TMP 800-160MG 1 EACH TAB PO SCH ×2 (07:51→20:30)
[2021-12-11] MEDS: LORATADINE 10 MG TAB PO SCH (07:51)
[2021-12-11] MEDS: MONTELUKAST 10 MG TAB PO SCH (07:51)
[2021-12-11] MEDS: HYDROXYCHLOROQUINE SULFATE 200 MG TAB PO SCH ×2 (07:52→20:30)
[2021-12-11] MEDS ORDERED: HYDROCORTISONE SUCCINATE 100 MG/2 ML VIAL IV SCH (08:15)
--- NOTE | 2021-12-11 13:53 | P.PN ---
Subjective Progress Note Date: 12/11/21 Principal diagnosis: Shortness of breath, lower externally swelling, chronic cough This is a 31-year-old white female patient who follows with AMADOU Carey for primary care services. Patient presents to the hospital on 12/09/2021 was complaints of shortness of breath, and her lower extremity swelling. Patient states she had been on steroids for several months due to a chronic cough, she sees an retail merchandising manager on an outpatient basis, she is not sure of the name. She had been on 50 mg of prednisone daily to be tapered over several weeks, in addition she is on Trelegy Ellipta 100-62.5-25 inhaler daily, Singulair, Flonase, cetirizine, and a nebulized and HFA albuterol. She is a never smoker. She is also on Plaquenil for possible Sjogren's disease and she had seen a nurse tech and was recently placed on Plaquenil. Since the increase in steroids she had worsening lower extremity swelling, continue shortness of breath, and abdominal distention. No fever or chills, no chest pain, no history of DVT or PE, reports that her PCP an retail merchandising manager still trying to get her cough under control so she can have a biopsy of a large thyroid nodule. No alcohol use. No abdominal pain, no nausea vomiting or diarrhea. KUB abdomen showed nonspecific bowel gas pattern without radiographic evidence for acute process, and there was a IUD projecting over the sacrum. CT angiogram of chest was completed showing no evidence of pulmonary embolism, no evidence of focal consolidation, pleural effusion or pneumothorax, there was streaky atelectasis seen within the lung bases. CT of the abdomen and pelvis showed no evidence of acute abdominal process, and IUD was in appropriate position. There was hepatic steatosis. Vital signs have been stable, patient has been afebrile, room air pulse ox is 99%, breathing is nonlabored, lab evaluation revealed normal white count of 10.1, hemoglobin is 13.1, coagulation profile was within normal limits, electrolytes and renal profile were unremarkable, LFTs were within normal limits, troponin was negative 1 at less than 0.012, proBNP was 85, amylase and lipase were within normal limits at 63 and 212 respectively. Urinalysis showed 1+ protein, large amount of blood, large amount of leukocyte esterase, 33 of white blood cells, consistent with possibility of acute urinary tract infection. Urine culture was sent. Patient's lungs are clear, patient does not appear to be in any acute distress, very mild minimal swelling in bilateral lower extremities, patient continues on nebulized bronchodilators, Symbicort, Singulair, Claritin and cough syrup On the 12/11/2021 patient seen in follow-up on medical surgical floor. She has been comfortable, room air pulse ox is 90%, lung sounds are clear, only occasional cough, no completed chest discomfort, patient is afebrile, patient had some lower blood pressures with systolic in the 80s and diastolic in the 50s, and the mean of 67. The rest of vitals have been stable, yesterday we started the patient consultation, we felt the patient's asthma was stable, and we discontinued her steroids, and recommended discharge home. Patient however had some lower blood pressures, and serum cortisol was checked, and was less than 1, TSH was within normal limits at 4.530, but ACTH level was reported incorrectly and was essentially void. C-reactive protein was less than 0.30, troponin was negative at less than 0.012, BRANDYN screen was positive, double-strand DNA antibody was negative. He felt that the patient did not need ongoing systemic steroids, however she states that she had been on prolonged course of steroids since August of this year. Possibility of adrenal insufficiency is being considered. Objective - Vital Signs Vital signs: Vital Signs Temp 98.5 F 12/11/21 07:00 Pulse 87 12/11/21 08:00 Resp 18 12/11/21 08:00 BP 88/57 12/11/21 07:00 Pulse Ox 98 12/11/21 07:00 FiO2 Intake & Output 12/10/21 12/11/21 12/11/21 18:59 06:59 18:59 Intake Total 358 118 Balance 358 118 Intake: Oral 358 118 Other: # Voids 2 1 - Exam GENERAL EXAM: Alert, very pleasant, 31-year-old white female, on room air, pulse ox of 99% comfortable in no apparent distress. HEAD: Normocephalic/atraumatic. EYES: Normal reaction of pupils, equal size. Conjunctiva pink, sclera white. NOSE: Clear with pink turbinates. THROAT: No erythema or exudates. NECK: No masses, no JVD, no thyroid enlargement, no adenopathy. CHEST: No chest wall deformity. Symmetrical expansion. LUNGS: Equal air entry with no crackles, wheeze, rhonchi or dullness. CVS: Regular rate and rhythm, normal S1 and S2, no gallops, no murmurs, no rubs ABDOMEN: Soft, nontender. No hepatosplenomegaly, normal bowel sounds, no guarding or rigidity. EXTREMITIES: No clubbing, minimal nonpitting lower extremity swelling, no cyanosis, 2+ pulses and upper and lower extremities. MUSCULOSKELETAL: Muscle strength and tone normal. SPINE: No scoliosis or deformity SKIN: No rashes CENTRAL NERVOUS SYSTEM: Alert and oriented -3. No focal deficits, tone is normal in all 4 extremities. PSYCHIATRIC: Alert and oriented -3. Appropriate affect. Intact judgment and insight. - Labs CBC & Chem 7: 12/10/21 06:13 12/10/21 06:13 Labs: Abnormal Lab Results - Last 24 Hours (Table) 12/10/21 Range/Units 19:36 BRANDYN Screen POSITIVE A (NEGATIVE) Assessment and Plan Plan: Assessment: #1. Chronic cough and dyspnea, possibly related to acute exacerbation of chronic bronchial asthma, unspecified. CTA chest showed no evidence of pulmonary embolism, no focal consolidation, no pleural effusion or pneumothorax. There was streaky atelectasis within the lung bases #2. Lower extremity swelling, minimal, abdominal distention, possibly related to prolonged use of systemic steroids #3. History of Sjogren's, on Plaquenil #4. Never smoker #5. Large thyroid nodule, awaiting biopsy #6. Acute urinary tract infection, urine cultures pending #7. Rule out possibility of adrenal insufficiency related to prolonged prednisone use Plan: From pulmonary perspective she has remained stable No worsening dyspnea, cough or wheezing Serum cortisol level has been repeated, we'll repeat ACTH stimulating test This possibility patient has developed adrenal insufficiency Recommend endocrinology consultation, if they are available to consult Otherwise patient will probably need outpatient consultation I have personally seen and examined the patient, performed the documentation and the assessment and plan as written. Number of minutes spent on the visit: [15] Time with Patient: Less than 30
[2021-12-11] MEDS: COSYNTROPIN 0.25 MG VIAL IVP ONE ×2 (15:00→15:02)
--- NOTE | 2021-12-11 20:14 | PN ---
PROGRESS NOTE CHIEF COMPLAINT: Weakness, chronic cough and lower extremity and lower abdominal pain and weakness. HISTORY OF PRESENT ILLNESS: This lady is feeling extremely weak. It is not focal. She is having no fever, chills, abdominal pain, chest pain, etc. PHYSICAL EXAMINATION: Chest is clear. Cardiac exam is normal. Abdomen is soft and nontender without masses. Extremities seem to be normal. She is hypotensive with a blood pressure of 88. IMPRESSION: 1. Generalized weakness. 2. Hypotension. 3. Longstanding history of shortness of breath and lower extremity edema. PLAN: 1. Hold discharge. 2. Consult with Neurology and Hematology/Oncology. MMODL / IJN: [id number] /
--- NOTE | 2021-12-11 21:12 | US ---
EXAMINATION TYPE: US venous doppler duplex LE BI DATE OF EXAM: 12/11/2021 8:29 PM COMPARISON: NONE CLINICAL HISTORY: Edema. Bilateral edema SIDE PERFORMED: Bilateral TECHNIQUE: The lower extremity deep venous system is examined utilizing real time linear array sonog lola with graded compression, doppler sonography and color-flow sonography. VESSELS IMAGED: Common Femoral Vein Deep Femoral Vein Greater Saphenous Vein * Femoral Vein Popliteal Vein Small Saphenous Vein * Proximal Calf Veins (* superficial vessels) Right Leg: Negative for DVT Left Leg: Negative for DVT IMPRESSION: No acute DVT of the bilateral lower extremities.
[2021-12-12 02:22] LABS: % Iron Saturation 19.36 (12.00-45.00); Ferritin 33.3 ng/mL (10.0-291.0); Magnesium 2.3 mg/dL (1.5-2.4)
[2021-12-12 02:32] LABS: C Reactive Protein 0.4 mg/dL (0.00-0.80); T4, Free (Free Thyroxine) 1.2 ng/dL (0.800-1.800)
[2021-12-12 03:05] LABS: Thyroid Peroxidase Antibodies 40.1 U/mL (0.0-33.0)
[2021-12-12] MEDS: IPRATROPIUM-ALBUTEROL 3 ML NEB INHALATION SCH ×3 (03:26→11:14)
[2021-12-12] MEDS: SYMBICORT 160-4.5 MCG INHALER INHALATION SCH (08:02)
[2021-12-12 08:11] VITALS: BP 106/74; PULSE 95; RESP 16; TEMP 98
[2021-12-12] MEDS ORDERED: HYDROCORTISONE SUCCINATE 100 MG/2 ML VIAL IV STA (08:36)
[2021-12-12] MEDS: MONTELUKAST 10 MG TAB PO SCH (09:34)
[2021-12-12] MEDS: SULFAMETHOX-TMP 800-160MG 1 EACH TAB PO SCH (09:34)
[2021-12-12] MEDS: HYDROXYCHLOROQUINE SULFATE 200 MG TAB PO SCH (09:34)
[2021-12-12] MEDS: FLUTICASONE 50MCG/SPRAY NASAL 16GM EA NOSTRIL SCH (09:35)
[2021-12-12] MEDS: AZELASTINE 137MCG/SPRAY NASAL SCH (09:35)
[2021-12-12] MEDS: LORATADINE 10 MG TAB PO SCH (09:35)
--- NOTE | 2021-12-12 10:10 | P.CNNES ---
History of Present Illness Consult date: 12/11/21 Requesting physician: Yan Metcalf Reason for Consult: Muscle weakness History of Present Illness: Patient is a 31-year-old female came to the hospital 12/09/2021 for evaluation of extreme tiredness, fatigue. Patient states "I've been feeling extremely weak since and of August 2021". When she carries groceries, gets out of breath, feels extremely weak. She then gets headache, a head starr, pounding, dizziness and has to sit down. She does any chores, and she feels extremely exhausted. She has been napping 2-3 times a day. She had a lot of upper respiratory infections. She denies any dysphagia, dysarthria although she has to constantly "clear throat". She is feeling hot/cold sensation with sweating. Denies any numbness tingling. Denies any problem with balance. She believes her symptoms have slightly improved since she is on higher dose of prednisone, but now she has developed some swelling in the legs. 2-D echo revealed normal left ventricle size and systolic function. Mild mitral and tricuspid insufficiency. Abdomen and pelvis CT showed no evidence of acute process. IUD in position. Blood test shows normal hemoglobin WBC store 0.7, platelets 296, Chem-7 is normal TSH normal. BRANDYN positive, dsDNA negative, Patient does not smoke, does not vape, does not use any marijuana. She drinks alcohol very very occasionally. She has no biological children, has 2 stepchildren. Review of Systems All 14 points of review of system reviewed, unremarkable except as mentioned in HPI. Past Medical History Additional Past Medical History / Comment(s): mass on thyroid History of Any Multi-Drug Resistant Organisms: None Reported Past Surgical History: No Surgical Hx Reported Past Psychological History: No Psychological Hx Reported Smoking Status: Never smoker Past Alcohol Use History: Rare Past Drug Use History: None Reported Medications and Allergies Home Medications Medication Instructions Recorded Confirmed Type Albuterol Nebulized [Ventolin 2.5 mg INHALATION RT-Q6H PRN 12/09/21 12/09/21 History Nebulized] Albuterol Sulfate [Ventolin HFA] 2 puff INHALATION RT-Q6H PRN 12/09/21 12/09/21 History Azelastine HCl [Astepro] 1 spray NASAL DAILY 12/09/21 12/09/21 History Cetirizine HCl 10 mg PO DAILY 12/09/21 12/09/21 History Codeine Phosphate/Guaifenesin 10 ml PO Q4H PRN 12/09/21 12/09/21 History [Codeine Phosphate/Guaifenesin 10-100 mg/5 ml] Fluticasone Nasal [place] [Flonase 1 spray EA NOSTRIL DAILY 12/09/21 12/09/21 History Nasal [place]] Fluticasone/Umeclidin/Vilanter 1 puff INHALATION RT-DAILY 12/09/21 12/09/21 History [Trelegy Ellipta 100-62.5-25] Hydroxychloroquine Sulfate 200 mg PO BID 12/09/21 12/09/21 History [Plaquenil] Montelukast [Singulair] 10 mg PO DAILY 12/09/21 12/09/21 History predniSONE See Taper PO DIRECTED 12/09/21 12/09/21 History Allergies Allergy/AdvReac Type Severity Reaction Status Date / Time No Known Allergies Allergy Verified 12/09/21 16:12 Physical Examination - Vital Signs Vital Signs: Vital Signs Temp Pulse Resp BP Pulse Ox 12/11/21 15:00 98.3 F 109 H 18 98/65 95 12/11/21 14:00 109 H 18 12/11/21 08:00 87 18 12/11/21 07:00 98.5 F 87 18 88/57 98 12/11/21 02:51 97.9 F 78 18 89/55 95 12/10/21 21:32 98.1 F 72 16 92/64 97 Intake and Output 12/11/21 12/11/21 12/11/21 06:59 14:59 22:59 Intake Total 236 Balance 236 Intake: Oral 236 Other: # Voids 1 1 Patient is a young female, in no acute distress. She does appear very anxious. Patient is alert awake oriented to time place and person. Speech and language functions are normal. Attention, concentration and fund of knowledge is adequ ate. On cranial examination, pupils are round and reacting to light, visual [place] are full on confrontation, with no neglect on double simultaneous stimulation. Her extraocular muscles are intact with no nystagmus. Face is symmetric, tongue protrudes to the midline. Palatal elevation and sensation normal, hearing and shoulder shrug normal, facial sensation normal. Shoulder shrug normal. On muscle strength testing, there is no pronator drift and the strength 5- bilaterally involving deltoids, biceps and forepart laster with decreased endurance. Triceps appears normal. Strength is normal in the lower limbs. Deep tendon reflexes are very symmetric, 1+ in the upper limbs, 2 at the knees 1 ankles and plantars downgoing. No clonus. Sensory to touch is equal with no neglect. Cerebellar function showed no ataxia for [id number] testing. No dysdiadochokinesia. Tone and bulk of muscles normal. Gait normal. On general examination, there is no carotid bruit or murmur, S1-S2 audible. Abdomen is soft nontender. No organomegaly, bowel sounds present. Chest is clear. Peripheral pulses are present. No edema. Results - Laboratory Findings CBC and BMP: 12/10/21 06:13 12/10/21 06:13 Abnormal Lab Findings: Abnormal Labs 12/09/21 12/09/21 12/09/21 17:08 17:10 17:10 WBC Neutrophils # 8.9 H Lymphocytes # 0.9 L Carbon Dioxide 21 L Glucose 127 H Urine Appearance Cloudy H Urine pH 8.5 H Urine Protein 1+ H Urine Blood Large H Ur Leukocyte Esterase Large H Urine RBC 131 H Urine WBC 33 H Ur Squamous Epith Cells 15 H Urine Bacteria Occasional H Urine Mucus Few H BRANDYN Screen 12/10/21 12/10/21 06:13 19:36 WBC 12.7 H Neutrophils # 8.2 H Lymphocytes # Carbon Dioxide Glucose Urine Appearance Urine pH Urine Protein Urine Blood Ur Leukocyte Esterase Urine RBC Urine WBC Ur Squamous Epith Cells Urine Bacteria Urine Mucus BRANDYN Screen POSITIVE A Assessment and Plan Assessment: * Generalized weakness, unclear etiology. Appears somewhat metabolic/nutritional/endocrine/psychogenic. Neurological examination nonfocal. Plan: * Agree with the blood tests that has been ordered by primary physician. * We will follow the blood test results as well. * I added acetylcholine receptor antibodies to complete the workup. * Thank you for the consult.
[2021-12-12] MEDS ORDERED: FOLIC ACID 1 MG TAB PO SCH (11:15)
--- NOTE | 2021-12-12 12:11 | P.PN ---
Subjective Progress Note Date: 12/12/21 This is a 31-year-old white female patient who follows with AMADOU Carey for primary care services. Patient presents to the hospital on 12/09/2021 was complaints of shortness of breath, and her lower extremity swelling. Patient states she had been on steroids for several months due to a chronic cough, she sees an boots and shoes supervisor on an outpatient basis, she is not sure of the name. She had been on 50 mg of prednisone daily to be tapered over several weeks, in addition she is on Trelegy Ellipta 100-62.5-25 inhaler daily, Singulair, Flonase, cetirizine, and a nebulized and HFA albuterol. She is a never smoker. She is also on Plaquenil for possible Sjogren's disease and she had seen a salesperson burial needs and was recently placed on Plaquenil. Since the increase in steroids she had worsening lower extremity swelling, continue shortness of breath, and abdominal distention. No fever or chills, no chest pain, no history of DVT or PE, reports that her PCP an boots and shoes supervisor still trying to get her cough under control so she can have a biopsy of a large thyroid nodule. No alcohol use. No abdominal pain, no nausea vomiting or diarrhea. KUB abdomen showed nonspecific bowel gas pattern without radiographic evidence for acute process, and there was a IUD projecting over the sacrum. CT angiogram of chest was completed showing no evidence of pulmonary embolism, no evidence of focal consolidation, pleural effusion or pneumothorax, there was streaky atelectasis seen within the lung bases. CT of the abdomen and pelvis showed no evidence of acute abdominal process, and IUD was in appropriate position. There was hepatic steatosis. Vital signs have been stable, patient has been afebrile, room air pulse ox is 99%, breathing is nonlabored, lab evaluation revealed normal white count of 10.1, hemoglobin is 13.1, coagulation profile was within normal limits, electrolytes and renal profile were unremarkable, LFTs were within normal limits, troponin was negative 1 at less than 0.012, proBNP was 85, amylase and lipase were within normal limits at 63 and 212 respectively. Urinalysis showed 1+ protein, large amount of blood, large amount of leukocyte esterase, 33 of white blood cells, consistent with possibility of acute urinary tract infection. Urine culture was sent. Patient's lungs are clear, patient does not appear to be in any acute distress, very mild minimal swelling in bilateral lower extremities, patient continues on nebulized bronchodilators, Symbicort, Singulair, Claritin and cough syrup On the 12/11/2021 patient seen in follow-up on medical surgical floor. She has been comfortable, room air pulse ox is 90%, lung sounds are clear, only occasional cough, no completed chest discomfort, patient is afebrile, patient had some lower blood pressures with systolic in the 80s and diastolic in the 50s, and the mean of 67. The rest of vitals have been stable, yesterday we started the patient consultation, we felt the patient's asthma was stable, and we discontinued her steroids, and recommended discharge home. Patient however had some lower blood pressures, and serum cortisol was checked, and was less than 1, TSH was within normal limits at 4.530, but ACTH level was reported incorrectly and was essentially void. C-reactive protein was less than 0.30, troponin was negative at less than 0.012, BRANDYN screen was positive, double-strand DNA antibody was negative. He felt that the patient did not need ongoing systemic steroids, however she states that she had been on prolonged course of steroids since August of this year. Possibility of adrenal insufficiency is being considered. The patient is seen today 12/12/2021 follow-up on the regular medical floor. She is currently resting comfortably in bed. Awake and alert in no acute distress. No worsening shortness of breath, cough or congestion. She is maintaining good O2 saturations in the 90s on room air. She is still somewhat weak and tired. There is some concern regarding possible adrenal insufficiency. She had ACTH stimulation test yesterday. Initial cortisol level was 05 then 11 and then 13. The Doppler of the lower extremities was negative for DVT. Urine culture was positive for Staphylococcus epidermidis. Warner virus by PCR not detected. Thyroglobulin antibody was 116, thyroid peroxidase antibody was 40. Objective - Vital Signs Vital signs: Vital Signs Temp 98.0 F 12/12/21 07:00 Pulse 95 12/12/21 07:00 Resp 16 12/12/21 08:00 BP 106/74 12/12/21 07:00 Pulse Ox 95 12/12/21 07:00 FiO2 Intake & Output 12/11/21 12/12/2122 18:59 06:59 18:59 Intake Total 236 118 Balance 236 118 Intake: Oral 236 118 Other: # Voids 1 2 - Exam GENERAL EXAM: Alert, very pleasant, 31-year-old female, on room air, pulse ox of 95% comfortable in no apparent distress. HEAD: Normocephalic/atraumatic. EYES: Normal reaction of pupils, equal size. Conjunctiva pink, sclera white. NOSE: Clear with pink turbinates. THROAT: No erythema or exudates. NECK: No masses, no JVD, no thyroid enlargement, no adenopathy. CHEST: No chest wall deformity. Symmetrical expansion. LUNGS: Equal air entry with no crackles, wheeze, rhonchi or dullness. CVS: Regular rate and rhythm, normal S1 and S2, no gallops, no murmurs, no rubs ABDOMEN: Soft, nontender. No hepatosplenomegaly, normal bowel sounds, no guarding or rigidity. EXTREMITIES: No clubbing, minimal nonpitting lower extremity swelling, no cyanosis, 2+ pulses and upper and lower extremities. MUSCULOSKELETAL: Muscle strength and tone normal. SPINE: No scoliosis or deformity SKIN: No rashes CENTRAL NERVOUS SYSTEM: No focal deficits, tone is normal in all 4 extremities. PSYCHIATRIC: Alert and oriented -3. Appropriate affect. Intact judgment and insight. - Labs CBC & Chem 7: 12/10/21 06:13 12/10/21 06:13 Labs: Abnormal Lab Results - Last 24 Hours (Table) 12/11/21 12/11/21 Range/Units 20:06 20:06 Vitamin D 25-Hydroxy 14.1 L (30.0-100.0) ng/mL Thyroglobulin Antibody 116.0 H (0.0-114.0) U/mL Thyroid Peroxidase Ab 40.1 H (0.0-33.0) U/mL Microbiology - Last 24 Hours (Table) 12/09/21 17:08 Urine Culture - Final Urine,Voided Staphylococcus epidermidis Assessment and Plan Assessment: 1 Chronic cough and dyspnea, possibly related to acute exacerbation of chronic bronchial asthma, unspecified. CTA chest showed no evidence of pulmonary embolism, no focal consolidation, no pleural effusion or pneumothorax. There was streaky atelectasis within the lung bases 2 Lower extremity swelling, minimal, abdominal distention, possibly related to prolonged use of systemic steroids. Doppler of lower extremities negative for DVT 3 History of Sjogren's, on Plaquenil 4 Never smoker 5 Large thyroid nodule, awaiting biopsy 6 Acute urinary tract infection, urine cultures pending 7 Rule out possibility of adrenal insufficiency related to prolonged prednisone use Plan: The patient was seen and evaluated Stable from the pulmonary standpoint Labs reviewed, possible adrenal insufficiency Initiated on Cortef 15 mg twice a day To follow closely with her senior environmental technician in the outpatient setting I have personally seen and examined the patient, performed the documentation and the assessment and plan as written. Number of minutes spent on the visit: 10.
--- NOTE | 2021-12-12 16:09 | P.CONS ---
History of Present Illness - Reason for Consult Consult date: 12/12/21 Weakness, SOB Requesting physician: Yan Metcalf - History of Present Illness This is a 31 dez old female who has been on treatment with steroids recently. She presents after the dosage was increased for increased abdominal bloating, lower extremity swelling, SOB, and weakness. Review of Systems All systems: negative Constitutional: Reports as per HPI Past Medical History Additional Past Medical History / Comment(s): mass on thyroid History of Any Multi-Drug Resistant Organisms: None Reported Past Surgical History: No Surgical Hx Reported Past Psychological History: No Psychological Hx Reported Smoking Status: Never smoker Past Alcohol Use History: Rare Past Drug Use History: None Reported Medications and Allergies Home Medications Medication Instructions Recorded Confirmed Type Albuterol Nebulized [Ventolin 2.5 mg INHALATION RT-Q6H PRN 12/09/21 12/09/21 History Nebulized] Albuterol Sulfate [Ventolin HFA] 2 puff INHALATION RT-Q6H PRN 12/09/21 12/09/21 History Azelastine HCl [Astepro] 1 spray NASAL DAILY 12/09/21 12/09/21 History Cetirizine HCl 10 mg PO DAILY 12/09/21 12/09/21 History Fluticasone Nasal [place] [Flonase 1 spray EA NOSTRIL DAILY 12/09/21 12/09/21 History Nasal [place]] Fluticasone/Umeclidin/Vilanter 1 puff INHALATION RT-DAILY 12/09/21 12/09/21 History [Trelegy Ellipta 100-62.5-25] Montelukast [Singulair] 10 mg PO DAILY 12/09/21 12/09/21 History methylPREDNISolone Dose Pack 1 mg PO DAILY 7 Days pack 12/12/21 Rx [Medrol Dose Pack] Allergies Allergy/AdvReac Type Severity Reaction Status Date / Time No Known Allergies Allergy Verified 12/09/21 16:12 Physical Exam Vitals: Vital Signs Temp Pulse Resp BP Pulse Ox 12/11/21 15:00 98.3 F 109 H 18 98/65 95 12/11/21 14:00 109 H 18 12/11/21 08:00 87 18 12/11/21 07:00 98.5 F 87 18 88/57 98 12/11/21 02:51 97.9 F 78 18 89/55 95 12/10/21 21:32 98.1 F 72 16 92/64 97 Intake and Output 12/11/21 12/11/21 12/11/21 06:59 14:59 22:59 Intake Total 236 Balance 236 Intake: Oral 236 Other: # Voids 1 1 GENERAL EXAM: Alert, very pleasant, 31-year-old female, on room air, pulse ox of 95% comfortable in no apparent distress. HEAD: Normocephalic/atraumatic. EYES: Normal reaction of pupils, equal size. Conjunctiva pink, sclera white. NOSE: Clear with pink turbinates. THROAT: No erythema or exudates. NECK: No masses, no JVD, no thyroid enlargement, no adenopathy. CHEST: No chest wall deformity. Symmetrical expansion. LUNGS: Equal air entry with no crackles, wheeze, rhonchi or dullness. CVS: Regular rate and rhythm, normal S1 and S2, no gallops, no murmurs, no rubs ABDOMEN: Soft, nontender. No hepatosplenomegaly, normal bowel sounds, no guarding or rigidity. EXTREMITIES: No clubbing, minimal nonpitting lower extremity swelling, no cyanosis, 2+ pulses and upper and lower extremities. MUSCULOSKELETAL: Muscle strength and tone normal. SPINE: No scoliosis or deformity SKIN: No rashes CENTRAL NERVOUS SYSTEM: No focal deficits, tone is normal in all 4 extremities. Results CBC & Chem 7: 12/10/21 06:13 12/10/21 06:13 Labs: Abnormal Lab Results - Last 24 Hours (Table) 12/10/21 Range/Units 19:36 BRANDYN Screen POSITIVE A (NEGATIVE) Assessment and Plan (1) Adrenal insufficiency Status: Acute Code(s): E27.40 - UNSPECIFIED ADRENOCORTICAL INSUFFICIENCY SNOMED Code(s): 704495084 (2) Generalized weakness Status: Acute Code(s): R53.1 - WEAKNESS SNOMED Code(s): 94743709 (3) Hypotension Status: Acute Code(s): I95.9 - HYPOTENSION, UNSPECIFIED SNOMED Code(s): 34972408 Plan: Appears to likely be related to inflammatory versus steroid induced adrenal insufficiency. ACTH is pending. Infectious causes are also needing to be considered considering immunosuppression with steroids. Full thyroid panel, including antibodies, B12, and tissue anemia Osei cultures and COVID Rapid BLE Doppler Assessment for steroid myopathy Recommend to follow-up with Rheumatology and endocrinology at discharge Replace vitamin D. Patient notified via phone
--- NOTE | 2021-12-12 18:39 | DS ---
DISCHARGE SUMMARY CHIEF COMPLAINT: Shortness of breath, persistent cough and weakness. HISTORY OF PRESENT ILLNESS AND PHYSICAL EXAMINATION: Details of this lady's history and physical can be found in the initial workup. LABORATORY STUDIES: While she was in the hospital she had laboratory studies, details of which can be found in the laboratory section of her chart. COURSE IN THE HOSPITAL: After admission she was placed on bedrest with frequent monitoring of her vital signs and neurologic status. She was seen by Pulmonology, who could not find any pulmonary abnormality to explain her persistent cough and shortness of breath. She was taken off the prednisone. Her blood pressure did drop and she had weakness and it was felt that this probably was related to adrenal insufficiency caused by being abruptly withdrawn from the prednisone. Nothing further could be identified as a cause of any of her issues and it was felt that she could be discharged home. She will be put back on a Medrol Dosepak and seen in several days. It is very unclear as to what her adrenal function truly is. She will require removal of steroids and further evaluation. She also has an abnormal Pap smear, which has to be taken care of with a gynecology referral soon. FINAL DIAGNOSIS: 1. Persistent cough, etiology unknown. 2. Persistent shortness of breath, etiology unknown. 3. Possible collagen vascular disease. 4. Possible [place]'s disease. 5. Hypotension. 6. Abnormal Pap smear. OPERATIONS: None. CONSULTATIONS: 1. Pulmonology. 2. Hematology/Oncology. She is improved. MMODL / IJN: [id number] /
[2021-12-12] MEDS ORDERED: HYDROCORTISONE 10 MG TAB PO SCH ×2 (21:00)
[2021-12-13] MEDS ORDERED: methylPREDNISolone 4 MG TAB TAPER PO SCH (09:00)
== END 2021-12-12 12:30 | disposition home or self-care (01) | DRG 202 ==
LOC: EC 15:20 → 6NMEDSUR 22:29 → OBSVTOIN 12-11 14:03
PROVIDERS: ADMIT Family Medicine; ATTEND Family Medicine
DX: J45.901 Unspecified asthma with (acute) exacerbation (principal); J98.11 Atelectasis; N39.0 Urinary tract infection, site not specified; E27.1 Primary adrenocortical insufficiency; R06.02 Shortness of breath; R05.3 Chronic cough; K76.0 Fatty (change of) liver, not elsewhere classified; M35.00 Sjogren syndrome, unspecified; I08.1 Rheumatic disorders of both mitral and tricuspid valves; E04.1 Nontoxic single thyroid nodule; T38.0X5A Adverse effect of glucocorticoids and synthetic analogues, initial encounter; Z20.822 Contact with and (suspected) exposure to COVID-19; R10.30 Lower abdominal pain, unspecified; R53.1 Weakness; R60.0 Localized edema; M35.9 Systemic involvement of connective tissue, unspecified; R87.619 Unspecified abnormal cytological findings in specimens from cervix uteri; Z86.16 Personal history of COVID-19; Z97.5 Presence of (intrauterine) contraceptive device; Z79.899 Other long term (current) drug therapy
CPT/HCPCS: 36415; 71275; 74018; 74177; 80048; 80053; 81001; 81025; 82024; 82150; 82306; 82533; 82550; 82607; 82728; 82746; 83519; 83540; 83550; 83615; 83690; 83735; 83874; 83880; 83921; 84432; 84439; 84443; 84481; 84484; 85025; 85610; 85652; 85730; 86038; 86039; 86140; 86225; 86376; 86800; 87040; 87077; 87086; 87186; 87635; 93306; 93970; 94640; 96374; 99285

== ENCOUNTER → 2022-01-07 | Outpatient (CLI) | payer OTHER | END | disposition home or self-care (01) | LOC: RADNMMAIN 09:30 | PROVIDERS: ATTEND Family Medicine | DX: E04.1 Nontoxic single thyroid nodule (principal); Z53.9 Procedure and treatment not carried out, unspecified reason ==

== ENCOUNTER → 2022-01-28 | Outpatient (CLI) | payer OTHER ==
--- NOTE | 2022-01-29 16:12 | NM ---
EXAMINATION TYPE: NM thyroid image w uptake DATE OF EXAM: 01/29/2022 COMPARISON: NONE HISTORY: 31-year-old female E04.1 TECHNIQUE: Thyroid iodine uptake is calculated and images performed after the oral administration of 309 uCi 1-123 Capsule. FINDINGS: Questionable cold nodule at the right lower pole on the MALTESE view. Not reproduced on the other project ions. Otherwise, there is normal distribution of activity throughout the gland. The 4 hour iodine uptake is calculated at 16.3% (normal range 8-14%). The 24-hour iodine uptake is calculated at 30.5% (normal range 15-35%). IMPRESSION: 1. Questionable cold nodule at the right lower pole seen only on one projection. Not confirmed on the other views. Recommend thyroid ultrasound to exclude a nodule at the right lower pole that may warra nt sampling. 2. Hyperthyroidism based on the 4 hour iodine uptake measurement. Iodine uptake is upper limits of no rmal at 24 hours.
== END | disposition home or self-care (01) ==
LOC: RADNMMAIN 09:34
PROVIDERS: ATTEND Family Medicine
DX: E04.1 Nontoxic single thyroid nodule (principal)
CPT/HCPCS: 78014; A9516

== ENCOUNTER 2022-06-03 08:46 | Observation (INO) | payer OTHER ==
[2022-06-03 09:07] VITALS: RESP 18; TEMP 98
[2022-06-03] MEDS ORDERED: ONDANSETRON 4 MG/2 ML VIAL IVP STA (09:22)
[2022-06-03] MEDS ORDERED: KETOROLAC 15 MG/ML 1 ML VIAL IVP STA (09:22)
--- NOTE | 2022-06-03 09:27 | ED ---
Skin/Abscess/FB HPI - General Chief complaint: Skin/Abscess/Foreign Body Stated complaint: facial abscess - sent by urgent care Time Seen by Provider: 06/03/22 09:15 Source: patient, RN notes reviewed, old records reviewed Mode of arrival: ambulatory Limitations: no limitations - History of Present Illness Initial comments: This is a nontoxic-appearing 32-year-old female sent by urgent care for evaluation of left-sided facial swelling and abscess. Patient states she went to bed last night at 10:00pm and at that time did have a small pimple on her l eft cheek. Could not sleep throughout the night related to increasing pain. The facial swelling became worse and redness now streaking down the front of her neck and upper chest. She is nauseated but denies any vomiting. Did have a fever at urgent care 100.5. No medical history. No history of MRSA. Denies any IV drug use. MD complaint: abscess/boil -: hour(s) (12) Tetanus Up to Date: yes Location: face (left maxillary) Severity scale (1-10): 10 Quality: burning, constant Consistency: constant Improves with: none Worsens with: palpation Context: other (pimple) Associated symptoms: fever Treatments Prior to Arrival: other (senty by urgent care) - Related Data Home Medications Medication Instructions Recorded Confirmed Albuterol Nebulized [Ventolin 2.5 mg INHALATION RT-Q6H PRN 12/09/21 06/03/22 Nebulized] Albuterol Sulfate [Ventolin HFA] 2 puff INHALATION RT-Q6H PRN 12/09/21 06/03/22 Azelastine HCl [Astepro] 2 spray EA NOSTRIL BID PRN 12/09/21 06/03/22 Cetirizine HCl 10 mg PO BID PRN 12/09/21 06/03/22 Budesonide [Pulmicort] 0.5 mg INHALATION RT-BID PRN 06/03/22 06/03/22 EPINEPHrine (Auto Inject) [Epipen] 0.3 mg IM ONCE PRN 06/03/22 06/03/22 Fluticasone/Umeclidin/Vilanter 1 puff INHALATION RT-DAILY 06/03/22 06/03/22 [Trelegy Ellipta 200-62.5-25] Omalizumab [Xolair] 150 mg SQ Q30D 06/03/22 06/03/22 Allergies Allergy/AdvReac Type Severity Reaction Status Date / Time No Known Allergies Allergy Verified 06/03/22 12:26 Review of Systems ROS Statement: Those systems with pertinent positive or pertinent negative responses have been documented in the HPI. ROS Other: All systems not noted in ROS Statement are negative. Past Medical History Additional Past Medical History / Comment(s): mass on thyroid History of Any Multi-Drug Resistant Organisms: None Reported Past Surgical History: No Surgical Hx Reported Past Psychological History: No Psychological Hx Reported Smoking Status: Never smoker Past Alcohol Use History: Rare Past Drug Use History: None Reported General Exam Limitations: no limitations General appearance: alert, in no apparent distress Head exam: Present: atraumatic, normocephalic Eye exam: Present: normal appearance, EOMI, periorbital tenderness (left sided), other (Abscess left cheek with dried drainage, erythema extending down anterior neck and chest). Absent: scleral icterus, conjunctival injection, periorbital swelling ENT exam: Present: normal oropharynx, mucous membranes moist Neck exam: Present: full ROM. Absent: tenderness, meningismus, lymphadenopathy, thyromegaly Respiratory exam: Present: normal lung sounds bilaterally. Absent: respiratory distress, accessory muscle use Cardiovascular Exam: Present: tachycardia Extremities exam: Present: normal capillary refill Neurological exam: Present: alert, oriented X3, normal gait Psychiatric exam: Present: normal affect, normal mood Skin exam: Present: warm, dry, normal color. Absent: cyanosis, diaphoretic, petechiae, pallor Course Vital Signs 06/03/22 09:05 Temperature 98.0 F Pulse Rate 102 H Respiratory 18 Rate Blood Pressure 122/77 O2 Sat by Pulse 100 Oximetry Medical Decision Making - Medical Decision Making 32-year-old female presents from urgent care with fever and left-sided facial sw elling and abscess. Patient states that she had a fever at urgent care 100.5. She states that the swelling was initially confined to a small pimple in the left maxilla which is now spread down left side of her face to her neck and upper chest. There is some dried scale to the lesion but no current drainage. ESR is 35, CRP 2.6, no evidence of leukocytosis. Patient was given Unasyn IV after blood cultures were drawn. She'll be placed in observation. Dr. Metcalf was notified of the admission to observation with Dr. Romo on consult. Case discussed with Dr. Swanson. - Lab Data Result diagrams: 06/03/22 09:35 06/03/22 09:35 Lab Results 06/03/22 06/03/22 06/03/22 Range/Units 09:35 09:35 09:35 WBC 10.5 (3.8-10.6) k/uL RBC 4.73 (3.80-5.40) m/uL Hgb 14.0 (11.4-16.0) gm/dL Hct 41.6 (34.0-46.0) % MCV 87.9 (80.0-100.0) fL MCH 29.6 (25.0-35.0) pg MCHC 33.6 (31.0-37.0) g/dL RDW 12.1 (11.5-15.5) % Plt Count 373 (150-450) k/uL MPV 7.2 Neutrophils % 67 % Lymphocytes % 22 % Monocytes % 6 % Eosinophils % 2 % Basophils % 0 % Neutrophils # 7.0 (1.3-7.7) k/uL Lymphocytes # 2.3 (1.0-4.8) k/uL Monocytes # 0.7 (0-1.0) k/uL Eosinophils # 0.2 (0-0.7) k/uL Basophils # 0.0 (0-0.2) k/uL ESR 35 H (0-20) mm/hr Sodium 141 (137-145) mmol/L Potassium 4.2 (3.5-5.1) mmol/L Chloride 105 (98-107) mmol/L Carbon Dioxide 29 (22-30) mmol/L Anion Gap 7 mmol/L BUN 8 (7-17) mg/dL Creatinine 0.64 (0.52-1.04) mg/dL Est GFR (CKD-EPI)AfAm >90 (>60 ml/min/1.73 sqM) Est GFR (CKD-EPI)NonAf >90 (>60 ml/min/1.73 sqM) Glucose 97 (74-99) mg/dL Calcium 8.8 (8.4-10.2) mg/dL Total Bilirubin 0.5 (0.2-1.3) mg/dL AST 32 (14-36) U/L ALT 29 (4-34) U/L Alkaline Phosphatase 72 (38-126) U/L C-Reactive Protein (<1.0) mg/dL Total Protein 7.5 (6.3-8.2) g/dL Albumin 4.5 (3.5-5.0) g/dL 06/03/22 Range/Units 09:35 WBC (3.8-10.6) k/uL RBC (3.80-5.40) m/uL Hgb (11.4-16.0) gm/dL Hct (34.0-46.0) % MCV (80.0-100.0) fL MCH (25.0-35.0) pg MCHC (31.0-37.0) g/dL RDW (11.5-15.5) % Plt Count (150-450) k/uL MPV Neutrophils % % Lymphocytes % % Monocytes % % Eosinophils % % Basophils % % Neutrophils # (1.3-7.7) k/uL Lymphocytes # (1.0-4.8) k/uL Monocytes # (0-1.0) k/uL Eosinophils # (0-0.7) k/uL Basophils # (0-0.2) k/uL ESR (0-20) mm/hr Sodium (137-145) mmol/L Potassium (3.5-5.1) mmol/L Chloride (98-107) mmol/L Carbon Dioxide (22-30) mmol/L Anion Gap mmol/L BUN (7-17) mg/dL Creatinine (0.52-1.04) mg/dL Est GFR (CKD-EPI)AfAm (>60 ml/min/1.73 sqM) Est GFR (CKD-EPI)NonAf (>60 ml/min/1.73 sqM) Glucose (74-99) mg/dL Calcium (8.4-10.2) mg/dL Total Bilirubin (0.2-1.3) mg/dL AST (14-36) U/L ALT (4-34) U/L Alkaline Phosphatase (38-126) U/L C-Reactive Protein 2.6 H (<1.0) mg/dL Total Protein (6.3-8.2) g/dL Albumin (3.5-5.0) g/dL Disposition Clinical Impression: Facial cellulitis Disposition: ADMITTED IP TO THIS HOSP Decision Date: 06/03/22 Decision Time: 12:01
[2022-06-03] MEDS ORDERED: AMPICILLIN-SULBACTAM 3 GM in SODIUM CHLORIDE 0.9% 100 ML IVPB STA (09:35)
[2022-06-03 09:51] LABS: Basophils % (A) 0 %; Eosinophils # (A) 0.2 k/uL (0-0.7); Eosinophils % (A) 2 %; HCT 41.6 % (34.0-46.0); Lymphocytes # (A) 2.3 k/uL (1.0-4.8); Lymphocytes % (A) 22 %; MCH 29.6 pg (25.0-35.0); MCHC 33.6 g/dL (31.0-37.0); MCV 87.9 fL (80.0-100.0); Mean Platelet Volume 7.2; Monocytes # (A) 0.7 k/uL (0-1.0); Monocytes % (A) 6 %; Neutrophils % (A) 67 %; Platelet Count 373 k/uL (150-450); RBC 4.73 m/uL (3.80-5.40); RDW 12.1 % (11.5-15.5); WBC 10.5 k/uL (3.8-10.6)
[2022-06-03 10:17] LABS: ALT 29 U/L (4-34); AST 32 U/L (14-36); African American GFR (CKD) >90 (>60 ml/min/1.73 sqM); Albumin 4.5 g/dL (3.5-5.0); Alkaline Phosphatase 72 U/L (38-126); Anion Gap 7 mmol/L; Blood Urea Nitrogen 8 mg/dL (7-17); Calcium 8.8 mg/dL (8.4-10.2); Carbon Dioxide 29 mmol/L (22-30); Chloride 105 mmol/L (98-107); Glucose 97 mg/dL (74-99); Non-African American GFR(CKD) >90 (>60 ml/min/1.73 sqM); Potassium 4.2 mmol/L (3.5-5.1); Sodium 141 mmol/L (137-145); Total Bilirubin 0.5 mg/dL (0.2-1.3); Total Protein 7.5 g/dL (6.3-8.2)
[2022-06-03] MEDS ORDERED: ACETAMINOPHEN TAB 325 MG TAB PO PRN (12:41)
[2022-06-03] MEDS ORDERED: NALOXONE 0.4 MG/ML 1 ML VIAL IV PRN (12:41)
[2022-06-03] MEDS ORDERED: IBUPROFEN 400 MG TAB PO PRN (12:41)
[2022-06-03 14:07] VITALS: BP 134/80; PULSE 92
[2022-06-03] MEDS ORDERED: FLUCONAZOLE 150 MG TAB PO STA (14:28)
[2022-06-03] MEDS ORDERED: AMPICILLIN-SULBACTAM 3 GM in SODIUM CHLORIDE 0.9% 100 ML IVPB SCH (15:00)
--- NOTE | 2022-06-04 23:02 | DS ---
DISCHARGE SUMMARY CHIEF COMPLAINT: Cellulitis and abscess of the left cheek and left side of the neck. HISTORY OF PRESENT ILLNESS AND PHYSICAL EXAMINATION: Details of this lady's history and physical can be found in the initial workup. LABORATORY STUDIES: While she was in the hospital, she had laboratory studies that can be found in the laboratory section of her chart and were unremarkable. COURSE IN THE HOSPITAL: After admission, she was placed on bedrest, started on IV fluids and IV antibiotics. Her treatment plan was established and instituted, she signed out against medical advice. FINAL DIAGNOSES: Cellulitis and abscess of the left side of the cheek and neck. OPERATIONS: None. CONSULTATION: None. She is improved. MMODL / IJN: [id number] /
--- NOTE | 2022-06-04 23:43 | HP ---
HISTORY AND PHYSICAL CHIEF COMPLAINT: Abscess and cellulitis of the left side of the face and neck. HISTORY OF PRESENT ILLNESS: This is a 32-year-old female, who presented to the emergency room with cellulitis and abscess of the left cheek and left side of the neck and was admitted for IV antibiotics. It was thought that this started from a simple folliculitis episode. REVIEW OF SYSTEMS: She has had no difficulty swallowing. She has had no chills or fever. REVIEW OF SYSTEMS: Otherwise unremarkable. Past medical history, family history, personal and social histories demonstrate that she is not allergic to any medication. At home, she uses albuterol, Pulmicort, and Trelegy. Remainder of her history is unremarkable. PHYSICAL EXAMINATION: VITAL SIGNS: Temperature is 98. Pulse is 102, respirations of 18, blood pressure 122/77. GENERAL: She appeared to be well developed, well nourished, and in some discomfort. HEAD, EARS, EYES, NOSE, MOUTH AND THROAT: Demonstrated cellulitis of the left side of the cheek and neck. CHEST: Clear. CARDIAC: Normal. ABDOMEN: Soft, nontender. EXTREMITIES: Normal. NEUROLOGICAL: She is intact. ASSESSMENT: She is admitted to the hospital with diagnosis of abscess and cellulitis of the left cheek, jaw, and left side of the neck. PLAN: 1. Bedrest. 2. IV fluids. 3. IV antibiotics. MMODL / IJN: [id number] /
== END 2022-06-03 14:55 | disposition home or self-care (01) ==
LOC: EC 08:46 → 6NMEDSUR 12:44
PROVIDERS: ADMIT Family Medicine; ATTEND Family Medicine
DX: L03.211 Cellulitis of face (principal); L02.01 Cutaneous abscess of face; E07.9 Disorder of thyroid, unspecified; Z79.899 Other long term (current) drug therapy; Z53.29 Procedure and treatment not carried out because of patient's decision for other reasons
CPT/HCPCS: 96365; 96375; 99284; 36415; 80053; 85652; 85025; 86140; 87040; G0378; J2405; J0295; J1885

== ENCOUNTER 2024-10-16 06:49 | Day surgery (SDC) | payer OTHER ==
[2024-10-16] MEDS ORDERED: SODIUM CHLORIDE 0.9% 1,000 ML IV SCH (07:04)
[2024-10-16 07:28] VITALS: RESP 16; TEMP 98
[2024-10-16] MEDS: SODIUM CHLORIDE 0.9% 500 ML 500 ML IV ONE (07:44)
[2024-10-16 12:21] VITALS: BP 123/71; PULSE 76
--- NOTE | 2024-10-16 19:39 | P.EPPROC ---
- EP Procedure Note Electrophysiology Procedure Note: Diagnosis: Recurrent syncope Twelve-lead EKG shows sinus rhythm normal MI narrow QRS normal ST segments normal QT interval Tilt table test per protocol Baseline blood pressure 121/65 mmHg, baseline heart rate 70 beats a minute Patient was tilted upright on maculas 70 degrees per protocol No significant change in blood pressure Increase in heart rate 221 beats a minute She complained of being dizzy with blurred vision shaky. Later on she felt hot and nauseous Subsequently she also complained of sweaty, feeling hot short of breath and as if she was running a marathon When she was laid supine her heart rate came back to normal at 70 bpm Impression Normal twelve-lead EKG Postural orthostatic tachycardia with above-mentioned symptoms, hyperadrenergic type with elevated blood pressure No evidence for secondary neurocardiogenic phenomena
== END 2024-10-16 09:17 | disposition home or self-care (01) ==
LOC: CATHEP 06:49
PROVIDERS: ATTEND Internal Medicine Clinical Cardiac Electrophysiology
DX: R55 Syncope and collapse (principal)
CPT/HCPCS: 84703; 93660

== ENCOUNTER → 2025-01-18 | Outpatient (CLI) | payer OTHER ==
--- NOTE | 2025-01-18 22:28 | US ---
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 FINDINGS: GLAND SIZE: Right Lobe: 4.2 x 1.4 x 1.9 cm Overall Parenchyma: heterogeneous Left Lobe: 4.1 x 1.5 x 1.9 cm Overall Parenchyma: heterogeneous Isthmus Thickness: 0.3 cm NODULES RIGHT: # of nodules measured on right: 0 LEFT: # of nodules measured on left: 0 ISTHMUS: # of nodules measured in the isthmus: 0 Bilateral neck scanned, no evidence of lymphadenopathy. IMPRESSION: Heterogenous thyroid without discrete nodule. Monitoring ultrasound performed. Highest TI-RADS level nodule reported: 2017 ACR TI-RADS LEVEL: TI-RADS assessment score and recommendation for follow-up based on appropriate scoring and treatment protocols. TR1 Benign No FNA TR2 Not suspicious No FNA TR3: If nodule size is ? 2.5 cm, FNA is recommended. If nodule size is ? 1.5 cm, follow-up imaging at 1, 3, and 5 years is recommended. TR4: If nodule size is ? 1.5 cm, FNA is recommended. If nodule size is ? 1.0 cm, follow-up imaging at 1, 2, 3, and 5 years is recommended. TR5: If nodule size is ? 1.0 cm, FNA is recommended. If nodule size is ? 0.5 cm, annual follow-up for up to 5 years is recommended. TR 1 thyroid nodules have a 0.3 % risk of malignancy. TR 2 thyroid nodules have a 1.5 % risk of malignancy. TR 3 thyroid nodules have a 4.8 % risk of malignancy. TR 4 thyroid nodules have a 9.1 % risk of malignancy. TR 5 thyroid nodules have a 35 % risk of malignancy. [email or web address] [facility], , 01/18/2025 10:26 PM
== END | disposition home or self-care (01) ==
LOC: RADUSWWP 12:50
PROVIDERS: ATTEND Internal Medicine
DX: E04.1 Nontoxic single thyroid nodule (principal); E07.89 Other specified disorders of thyroid
CPT/HCPCS: 76536